=== PATIENT | female | born 1970 | race Caucasian/White ===

== ENCOUNTER → 2016-04-20 | Outpatient (CLI) | payer OTHER ==
[~2016-04-20] MED LIST: BYSTOLIC10 MG PO; HYDROCODONE BIT1 T48 PO; LEVAQUIN 750MG750 M1 PO; MEDROL 4MG DOSPA4 MG PO; OSTEO BI-FLEX1 TAB PO; PRILOSEC 20MG20 MG PO
== END ==
LOC: LAB 16:28
DX: M1A.09X0 Idiopathic chronic gout, multiple sites, without tophus (tophi) (principal)

== ENCOUNTER → 2016-06-24 | Outpatient (CLI) | payer OTHER | LOC: LAB 14:58 | DX: R10.9 Unspecified abdominal pain (principal) ==

== ENCOUNTER → 2016-08-12 | Outpatient (CLI) | payer OTHER ==
[2013-07-03 09:50] VITALS: BP 148/84
== END ==
LOC: LAB 15:06
DX: I10 Essential (primary) hypertension (principal); N91.2 Amenorrhea, unspecified

== ENCOUNTER → 2016-10-21 | Outpatient (CLI) | payer OTHER ==
[2013-07-03 09:50] VITALS: BP 148/84
== END ==
LOC: LAB 14:20
DX: N92.1 Excessive and frequent menstruation with irregular cycle (principal); R53.81 Other malaise

== ENCOUNTER → 2017-12-27 | Outpatient (CLI) | payer OTHER ==
[2013-07-03 09:50] VITALS: BP 148/84
== END ==
LOC: CARDREHAB 11:46 → CARDLAB 13:30
DX: R00.0 Tachycardia, unspecified (principal); R68.89 Other general symptoms and signs; R07.9 Chest pain, unspecified

== ENCOUNTER → 2019-05-30 | Outpatient (CLI) | payer BC ==
[2013-07-03 09:50] VITALS: BP 148/84
[2019-05-30 09:45] LABS: HEMATOCRIT 42.1 % (37.0-47.0); MEAN CELL VOLUME 92 fl (78-100); MEAN CORPUSCULAR HEMOGLOBIN 28 pg (27-31); MEAN CORPUSCULAR HGB CONC 31 g/dL (33-37); MEAN PLATELET VOLUME 9.3 fl (7.4-10.4); PLATELET COUNT 215 K/mm3 (130-400); RED BLOOD COUNT 4.58 M/mm3 (4.10-5.30); RED CELL DISTRIBUTION WIDTH 15.6 % (11.5-14.5); WHITE BLOOD COUNT 3.7 K/mm3 (4.8-10.8)
[2019-05-30 09:49] LABS: ALBUMIN 4.3 g/dL (3.5-5.0); POTASSIUM 4.1 mmol/L (3.5-5.1)
[2019-05-30 09:50] LABS: CALCIUM 8.7 mg/dL (8.3-10.5)
[2019-05-30 09:51] LABS: TOTAL PROTEIN 7.3 g/dL (6.4-8.3)
[2019-05-30 09:53] LABS: TOTAL BILIRUBIN 0.3 mg/dL (0.2-1.2)
[2019-05-30 10:04] LABS: LYMPHOCYTE 13 % (20-51); MONOCYTE 13 % (3-10); NEUTROPHILS 69 % (42-75)
== END ==
LOC: RAD 09:13
PROVIDERS: Family Medicine
DX: R05 Cough (principal); R50.9 Fever, unspecified

== ENCOUNTER → 2020-04-29 | Outpatient (CLI) | payer BC ==
[2013-07-03 09:50] VITALS: BP 148/84
== END ==
LOC: RAD 18:34
DX: M47.816 Spondylosis without myelopathy or radiculopathy, lumbar region (principal); M48.07 Spinal stenosis, lumbosacral region; Z90.49 Acquired absence of other specified parts of digestive tract

== ENCOUNTER → 2020-05-12 | Outpatient (CLI) | payer BC ==
[2013-07-03 09:50] VITALS: BP 148/84
[2020-05-12 09:56] LABS: EOS # 0.2 (0.04-0.40); EOS % 3.9 % (1.0-5.0); HEMATOCRIT 38.9 % (37.0-47.0); HEMOGLOBIN 11.4 g/dL (12.5-16.0); LYMPH# 1.1 (1.50-4.00); MEAN CELL VOLUME 82 fl (78-100); MEAN PLATELET VOLUME 8.4 fl (7.4-10.4); MONO # 0.4 (0.20-0.80); NEU # 2.9 (1.40-6.50); PLATELET COUNT 274 K/mm3 (130-400); RED BLOOD COUNT 4.72 M/mm3 (4.10-5.30); RED CELL DISTRIBUTION WIDTH 16.2 % (11.5-14.5); WHITE BLOOD COUNT 4.6 K/mm3 (4.8-10.8)
[2020-05-12 09:59] LABS: MEAN CORPUSCULAR HEMOGLOBIN 24 pg (27-31); MEAN CORPUSCULAR HGB CONC 29 g/dL (33-37)
[2020-05-12 10:04] LABS: POTASSIUM 4.4 mmol/L (3.5-5.1)
[2020-05-12 10:05] LABS: ALBUMIN 4.4 g/dL (3.5-5.0)
[2020-05-12 10:06] LABS: CALCIUM 8.9 mg/dL (8.3-10.5)
[2020-05-12 10:07] LABS: TOTAL PROTEIN 7.6 g/dL (6.4-8.3)
[2020-05-12 10:09] LABS: TOTAL BILIRUBIN 0.3 mg/dL (0.2-1.2)
== END ==
LOC: LAB 09:40
PROVIDERS: Family Medicine
DX: Z00.00 Encounter for general adult medical examination without abnormal findings (principal); E78.5 Hyperlipidemia, unspecified; R73.9 Hyperglycemia, unspecified; E55.9 Vitamin D deficiency, unspecified

== ENCOUNTER → 2020-06-06 | Outpatient (CLI) | payer BC ==
[2013-07-03 09:50] VITALS: BP 148/84
[2020-06-06 18:08] LABS: PARTIAL THROMBOPLASTIN TIME 23.9 SECONDS (21.0-32.0); PROTHROMBIN TIME 9.9 SECONDS (9.0-12.0)
== END ==
LOC: LAB 17:34
PROVIDERS: Family Medicine
DX: Z12.11 Encounter for screening for malignant neoplasm of colon (principal); M1A.00X0 Idiopathic chronic gout, unspecified site, without tophus (tophi); R58 Hemorrhage, not elsewhere classified

== ENCOUNTER → 2021-09-23 | Outpatient (CLI) | payer BC ==
[2021-09-23 09:35] LABS: BASO # 0.03 K/mm3 (0.02-0.10); EOS # 0.41 K/mm3 (0.04-0.40); EOS % 7.4 % (1.0-5.0); HEMOGLOBIN 15.1 g/dL (12.5-16.0); LYMPH# 1.12 K/mm3 (1.50-4.00); MEAN CELL VOLUME 95 fl (78-100); MEAN CORPUSCULAR HEMOGLOBIN 31 pg (27-31); MEAN CORPUSCULAR HGB CONC 33 g/dL (33-37); MEAN PLATELET VOLUME 8.8 fl (7.4-10.4); MONO # 0.49 K/mm3 (0.20-0.80); NEU # 3.49 K/mm3 (1.40-6.50); PLATELET COUNT 261 K/mm3 (130-400); RED BLOOD COUNT 4.86 M/mm3 (4.10-5.30); WHITE BLOOD COUNT 5.6 K/mm3 (4.8-10.8)
[2021-09-23 09:42] LABS: ALBUMIN 4.5 g/dL (3.5-5.0); POTASSIUM 4.7 mmol/L (3.5-5.1)
[2021-09-23 09:46] LABS: TOTAL BILIRUBIN 0.5 mg/dL (0.2-1.2)
== END ==
LOC: LAB 09:12
PROVIDERS: Family Medicine
DX: Z00.00 Encounter for general adult medical examination without abnormal findings (principal); E78.5 Hyperlipidemia, unspecified; M10.9 Gout, unspecified; E55.9 Vitamin D deficiency, unspecified; R73.9 Hyperglycemia, unspecified

== ENCOUNTER 2021-10-23 09:54 | Outpatient (RCR) | payer BC | END 2021-11-08 | disposition home or self-care (01) | LOC: CARDREHAB | DX: R07.9 Chest pain, unspecified (principal) | CPT/HCPCS: A9500 ==

== ENCOUNTER → 2022-01-07 | Outpatient (CLI) | payer BC | LOC: RAD 15:11 | DX: D32.0 Benign neoplasm of cerebral meninges (principal) | CPT/HCPCS: A9575 ==

== ENCOUNTER → 2023-12-26 | Outpatient (CLI) | payer BC ==
[2023-12-26 07:48] LABS: BASO # 0.03 K/mm3 (0.02-0.10); EOS # 0.47 K/mm3 (0.04-0.40); EOS % 12.1 % (1.0-5.0); HEMATOCRIT 38.4 % (37.0-47.0); HEMOGLOBIN 12.6 g/dL (12.5-16.0); MEAN CELL VOLUME 96 fl (78-100); MEAN CORPUSCULAR HEMOGLOBIN 31 pg (27-31); MEAN CORPUSCULAR HGB CONC 33 g/dL (33-37); MEAN PLATELET VOLUME 8.9 fl (7.4-10.4); MONO # 0.36 K/mm3 (0.20-0.80); NEU # 1.93 K/mm3 (1.40-6.50); PLATELET COUNT 207 K/mm3 (130-400); RED BLOOD COUNT 4.01 M/mm3 (4.10-5.30); RED CELL DISTRIBUTION WIDTH 12.1 % (11.5-14.5); WHITE BLOOD COUNT 3.9 K/mm3 (4.8-10.8)
[2023-12-26 07:53] LABS: ALBUMIN 4.1 g/dL (3.5-5.0)
[2023-12-26 07:54] LABS: CALCIUM 9.7 mg/dL (8.3-10.5)
[2023-12-26 07:56] LABS: TOTAL PROTEIN 6.9 g/dL (6.4-8.3)
[2023-12-26 07:57] LABS: TOTAL BILIRUBIN 0.3 mg/dL (0.2-1.2)
== END ==
LOC: LAB 07:33
PROVIDERS: Family Medicine
DX: I10 Essential (primary) hypertension (principal); E78.5 Hyperlipidemia, unspecified; M1A.00X0 Idiopathic chronic gout, unspecified site, without tophus (tophi)